=== PATIENT | male | born 1980 | race Hispanic/Latino ===

== ENCOUNTER 2023-04-30 09:18 | Emergency (ER) | payer SELFPAY ==
[2023-04-30] MEDS ORDERED: ALL DAY10 MG PO (11:24)
[2023-04-30] MEDS ORDERED: FLONASE AL50 MCG/ACT (11:24)
[2023-04-30 11:31] VITALS: BP 153/86
== END 2023-04-30 11:33 | disposition home or self-care (01) | DRG 916 ==
LOC: ED 09:18
DX: T78.40XA Allergy, unspecified, initial encounter (principal); X58.XXXA Exposure to other specified factors, initial encounter